=== PATIENT | female | born 1985 | race Caucasian/White ===

== ENCOUNTER 2019-03-07 07:49 | Emergency (ER) | payer OTHER ==
[2019-03-07 08:05] VITALS: BP 146/88
--- NOTE | 2019-03-07 08:24 | ED Physician Documentation ---
PD HPI FEMALE - Stated complaint Stated Complaint: FEMALE - Chief complaint Chief Complaint: Abd Pain - History obtained from History obtained from: Patient, Family - History of Present Illness Timing - onset: Today Timing - duration: Hours Timing - details: Gradual onset, Still present Associated symptoms: Vaginal bleeding Contributing factors: OB-PROSECUTING ATTORNEY History: G (5), P (0), Miscarriage(s) (4) Similar symptoms before: Diagnosis (threatened misscarriage) Recently seen: Clinic - Additional information Additional information: 33-year-old female who is for the fifth time with in vitro fertilization as carried the now to nearly 18 weeks. She is having some bright red blood this morning and she is come back in for reevaluation. She states that she had some spotting initially in the early this resolved and 1 day after her second trimester she had some spotting again had a reevaluation. She has had multiple ultrasound evaluations. Review of Systems Constitutional: denies: Fever, Chills, Myalgias Eyes: denies: Decreased vision Nose: denies: Congestion Throat: denies: Sore throat Respiratory: denies: Cough GI: denies: Abdominal Pain, Nausea, Vomiting : reports: Frequency, Vaginal bleeding. denies: Dysuria PD PAST MEDICAL HISTORY - Past Medical History Past Medical History: Yes PROSECUTING ATTORNEY: Miscarriage(s) - Past Surgical History Past Surgical History: No - Allergies Allergies/Adverse Reactions: Allergies Allergy/AdvReac Type Severity Reaction Status Date / Time acetaminophen [From Vicodin] AdvReac Nausea Verified 03/07/19 07:58 hydrocodone [From Vicodin] AdvReac Nausea Verified 03/07/19 07:58 Penicillins AdvReac Unknown Verified 03/07/19 07:59 - Social History Does the pt smoke?: No Smoking Status: Never smoker PD ED PE NORMAL - Vitals Vital signs reviewed: Yes (tachy and hypertensive) - General General: Alert and oriented X 3, No acute distress, Well developed/nourished - HEENT HEENT: Atraumatic, PERRL, EOMI - Neck Neck: Supple, no meningeal sign, No bony TTP - Cardiac Cardiac: RRR, No murmur - Respiratory Respiratory: No respiratory distress, Clear bilaterally - Abdomen Abdomen: Normal bowel sounds, Soft, Non tender, Non distended, No organomegaly - Back Back: No CVA TTP, No spinal TTP - Derm Derm: Normal color, Warm and dry, No rash - Extremities Extremities: No deformity, No edema, No calf tenderness / cord - Neuro Neuro: Alert and oriented X 3, supervisor pumping station 2-12 intact, No motor deficit, No sensory deficit, Normal speech Eye Opening: Spontaneous Motor: Obeys Commands Verbal: Oriented GCS Score: 15 - Psych Psych: Normal mood, Normal affect Results - Vitals Vitals: Vital Signs - 24 hr 03/07/19 07:54 Temperature 36.9 C Heart Rate 110 H Respiratory 16 Rate Blood Pressure 146/88 H O2 Saturation 98 - Labs Labs: Laboratory Tests 03/07/19 08:00 Urine Color LIGHT YELLOW Urine Clarity HAZY Urine pH 6.0 Ur Specific Willard <=1.005 Urine Protein NEGATIVE Urine Glucose (UA) NEGATIVE Urine Ketones NEGATIVE Urine Occult Blood SMALL H Urine Nitrite NEGATIVE Urine Bilirubin NEGATIVE Urine Urobilinogen 0.2 (NORMAL) Ur Leukocyte Esterase NEGATIVE Urine RBC 0-5 Urine WBC 0-3 Ur Squamous Epith Cells FEW Squamous Urine Bacteria Few Ur Microscopic Review INDICATED Urine Culture Comments NOT INDICATED Procedures - Bedside sono Bedside sono by EMP: With use of bedside ultrasound the fetus is imaged there is a heart rate of 156 bpm the biparietal diameter indicates a age of 17 weeks 4 days and the placenta has no obvious abruption. PD MEDICAL DECISION MAKING - ED course Complexity details: reviewed results, re-evaluated patient, considered dif ferential, d/w patient, d/w family ED course: 33-year-old female at nearly 18 weeks gestation with an intrauterine that appears viable is reassured and instructed to follow-up as previously planned. Departure - Departure Disposition: 01 Home, Self Care Clinical Impression: Threatened miscarriage Condition: Stable Instructions: ED Miscarriage Poss Follow-Up: MARYANN Draper [Provider Group] Discharge Date/Time: 03/07/19 09:08
[2019-03-07 08:28] LABS: BILIRUBIN,URINE NEGATIVE (NEGATIVE); GLUCOSE, URINE (UA) NEGATIVE (NEGATIVE); KETONES,URINE (UA) NEGATIVE (NEGATIVE); LEUKOCYTE ESTERASE, URINE NEGATIVE (NEGATIVE); NITRITE,URINE NEGATIVE (NEGATIVE); OCCULT BLOOD,URINE SMALL (NEGATIVE); PROTEIN,URINE NEGATIVE (NEGATIVE); UROBILINOGEN,URINE 0.2 (NORMAL) E.U./dL (NORMAL)
[2019-03-07 08:32] LABS: CLARITY,URINE HAZY (CLEAR)
[2019-03-07 08:37] LABS: BACTERIA,URINE Few /HPF (None Seen); RBC,URINE 0-5 /HPF (0-5); SQUAMOUS EPITHELIAL CELL,UR FEW Squamous (<= Few)
== END 2019-03-07 09:08 | disposition home or self-care (01) ==
LOC: ED 07:49
DX: O20.0 Threatened abortion (principal); Z3A.17 17 weeks gestation of pregnancy; O09.292 Supervision of pregnancy with other poor reproductive or obstetric history, second trimester
CPT/HCPCS: 81001; 81003; 87086; 99283; 99284